=== PATIENT | female | born 1960 | race Caucasian/White ===

== ENCOUNTER → 2025-02-28 | Outpatient (CLI) | payer BC, SELFPAY ==
--- NOTE | 2025-02-28 | XR_ITS ---
Examination: Knee, right, 3 views Technique: Knee AP, lateral, oblique 3 views Date and time of exam: February 28, 2025 1128 hours INDICATIONS: Right knee pain beginning one week ago. FINDINGS: Significant osteopenia Moderate narrowing medial joint space right knee No fracture IMPRESSION: Moderate narrowing medial joint space right knee
== END | disposition home or self-care (01) ==
PROVIDERS: PCP Family Medicine; Referring Provider Family Medicine; Visit Provider Family Medicine
DX: M25.861 Other specified joint disorders, right knee (principal)
CPT/HCPCS: 73562